=== PATIENT | female | born 1995 | race Caucasian/White ===

== ENCOUNTER → 2017-12-04 | Outpatient (CLI) | payer BC ==
[~2017-12-04] MED LIST: ETON1VAG7 VG; METF-51
== END ==
LOC: LAB 13:07
PROVIDERS: ATTEND Surgery
DX: L72.11 Pilar cyst (principal)
CPT/HCPCS: 88305

== ENCOUNTER → 2018-05-01 | Outpatient (CLI) | payer BC ==
[~2018-05-01] MED LIST changes: +FLUT16SP19
--- NOTE | 2018-05-01 08:44 | RADIOLOGY IMAGING REPORT ---
FACILITY: [facility] PATIENT NAME: Jignesh Frederick : 1995 MR: [id number] V: [id number] EXAM DATE: ORDERING PHYSICIAN: JOSÉ MIGUEL JO TECHNOLOGIST: Location: [facility] [place] Patient: Jignesh Frederick : 1995 Visit/Account:[id number] Date of Sevice: 05/01/2018 CT scan of the paranasal sinuses without contrast. HISTORY: Chronic sinusitis. COMPARISON: None. 2 mm thick and 0.[address] images were obtained of the paranasal sinuses. No intravenous contrast. Coronal and sagittal computer reconstructions were performed. One of the following dose o ptimization techniques was utilized in the performance of this exam: Automated exposure control; adju stment of the mA and/or kV according to the patient's size; or use of an iterative reconstruction te chnique. Specific details can be referenced in the facility's radiology CT exam operational policy.. FINDINGS: Portions of medial pride of the maxillary sinuses have been resected bilaterally. Several ethmoid se job captain have been resected bilaterally. Mild mucosal thickening or small amount of thick fluid is presen t in the inferior aspect of the right maxillary sinus. The ethmoid and maxillary sinuses are otherwi se unremarkable. The cribriform plate has a slightly low position. The frontal sinus is unremarkabl e. Minimal mucosal thickening or a small amount of thick fluid is present in the posterior aspect of the sphenoid sinus. The bony nasal septum is midline. The mastoids and middle ears are aerated vishal aterally. A small amount of cerumen is present in the right external ear canal. Metal jewelry is pr esent in the left earlobe. Multiple lymph nodes measuring up to 1.4 cm in diameter are present in the deep and superficial cervi neil chains bilaterally. The mid and lower neck were not completely included. IMPRESSION: Bilateral antral windows and partial ethmoidectomies. Minimal inflammatory disease of the right maxillary sinus and sphenoid sinus. Otherwise negative paranasal sinuses. Mild upper cervical adenopathy, probably reactive. Neoplastic adenopathy cannot be completely exclud ed. Clinical correlation is suggested. Report Dictated By: Juan Miguel Almonte MD at 05/01/2018 8:22 AM Report E-Signed By: Juan Miguel Almonte MD at 05/01/2018 8:39 AM WSN:[email or web address]
== END ==
LOC: CT 01:12
PROVIDERS: ATTEND Otolaryngology
DX: J01.00 Acute maxillary sinusitis, unspecified (principal); J32.3 Chronic sphenoidal sinusitis; R59.0 Localized enlarged lymph nodes
CPT/HCPCS: 70486

== ENCOUNTER → 2018-11-16 | Outpatient (REF) | payer BC | PROVIDERS: ATTEND Nurse Practitioner Family | DX: R10.9 Unspecified abdominal pain (principal) | CPT/HCPCS: 82040; 82247; 82310; 82374; 82435; 82565; 82947; 84075; 84132; 84155; 84295; 84450; 84460; 84520; 85027 ==